=== PATIENT | female | born 1960 | race Caucasian/White ===

== ENCOUNTER 2016-09-05 15:32 | Emergency (ER) | payer MEDICARE ==
[2016-09-05 16:05] VITALS: TEMP 98.6; BMI 36.4
[2016-09-05 16:27] LABS: AUTOMATED BASOPHIL 0.1 % (0-2); AUTOMATED EOSINOPHIL 0.1 % (0-5); AUTOMATED LYMPH 38.7 % (17-44); AUTOMATED MONOCYTE 7.1 % (3-10); MPV 7.9 fL (7.4-10.4)
[2016-09-05 16:39] LABS: PARTIAL THROMB. TIME 24.7 SEC (22-35)
[2016-09-05 16:44] LABS: BLOOD UREA NITROGEN 19 MG/DL (7-17); CALC CORRECTED 9.3 MG/DL (8.4-10.2); CALCIUM 9.2 MG/DL (8.4-10.2); CALCULATED OSMOLALITY 276 MOs/Kg (270-290); CHLORIDE 109 mEq/L (98-107); GLUCOSE 121 MG/DL (70-99); SODIUM LEVEL 142 mEq/L (137-146); TOTAL PROTEIN 6.7 G/DL (6.3-8.2)
[2016-09-05 17:03] LABS: LEUKOCYTES/URINE NEG (NEGATIVE); NITRITE/URINE NEG (NEGATIVE); RBC/URINE 0-2 (0-5); URINE OCCULT BLOOD NEG (NEG/TRACE)
--- NOTE | 2016-09-05 17:26 | EDPRACDOC ---
- General Information Chief Complaint: Generalized Weakness Stated Complaint: HEADACHE DIZZY RT ARM NUMB NAUSEATED Time Seen by Provider: 09/05/16 17:17 Information Source: Patient Mode of Arrival: Car Home Medications: Home Medications Prednisone [Deltasone, Orasone] 10 mg PO DAILY #39 tablet 09/05/16 Sulfamethoxazole/Trimethoprim [Bactrim Ds Tablet] 1 tab PO BID #10 tab 09/05/16 - History of Present Illness Onset: 4 days HPI: RIGHT ARM PAIN AND NUMBNESS FOR 6 MONTHS, GRADUALLY WORSENING. HEADACHE AND NAUSEA STARTED SATURDAY. HAS HAD XRAY AND MRI OF NECK WITH CERVICAL DISC DISEASE. ED Past Medical History - Patient Medical History Neurological History: Reports: Cerebrovascular Accident Cardiac History: Reports: Hypertension Respiratory History: Reports: COPD Musculoskeletal History: Reports: Arthritis (hands, elbows, knees) Psychological History: Reports: Anxiety. Denies: Depression Systemic History: Denies: Cancer Surgical History: Denies: Hysterectomy - Social Medical History Smoking Status: Heavy tobacco smoker (5 or more cigarettes/day or daily pipe/ cigar) EDM Review of Systems - Review of Systems ROS Negative Except as Marked: Yes All systems reviewed and were negative except as marked Constitutional: No Symptoms Reported Eyes: No Symptoms Reported Throat: No Symptoms Reported Nose: No Symptoms Reported Respiratory: No Symptoms Reported Cardiovascular: No Symptoms Reported Gastrointestinal: Nausea (WHEN PAIN IS SEVERE) Genitourinary: Frequency. negative: Dysuria - Physical Exam Constitutional: Alert (Awake), No apparent distress Oriented to: Time, Person, Place Last recorded Vital Signs: Last Vital Signs Temp 98.6 F 09/05/16 15:58 Pulse 67 09/05/16 15:58 Resp 20 09/05/16 15:58 BP 172/81 09/05/16 15:58 Pulse Ox 95 09/05/16 15:58 Oxygen Pulse Oxygen Saturation 95 O2 Device Room Air Oxygen Flow Rate Fraction of Inspired Oxygen ( FIO2) - HEENT Head: Normal ( normocephalic) Eye Exam: Normal (PERRL, EOMI, Sclera white) Oropharynx: Normal (Pharynx:Moist without exudate,Gums-no swelling) Nose: No Symptoms Reported (septum midline) Neck: Tender (MIDLINE CERVICAL APPROX C4, C5) - Respiratory/Cardiovascular Respiratory: Normal - CTA (BBS clear to auscultation without adventitious sounds ) Cardiovascular: Normal (RRR without murmur, gallop or rub) - GI Auscultation: Normal (NABS) Palpation: Normal (Soft,No rebound or guarding, non distended) Tenderness: Non tender Cordoba's Sign: Negative - Musculoskeletal Back: Normal (Non-Tender) Extremities: Normal (Normal tone, Pulses 2+ No cyanosis or edema, FROM) - Integumentary Skin: Normal, Warm, Dry Lymphatics: Normal (no adenopathy) - Neurologic Memory Impaired: Normal Motor Function: Normal (Normal tone, Pulses 2+ No cyanosis or edema, FROM) Cranial Nerve: Normal (CN II-X11 intact sensation, strength 5/5) Cerebellar: Normal Mood Description: Normal Perception: Normal - Results 09/05/16 16:08 09/05/16 16:08 WBC 7.6 xk/uL (3.8-10.8) 09/05/16 16:08 RBC 4.34 xM/uL (4.20-5.40) 09/05/16 16:08 Hgb 13.6 g/dL (12.0-16.0) 09/05/16 16:08 Hct 40.0 % (36-47) 09/05/16 16:08 MCV 92 fL (81-99) 09/05/16 16:08 MCH 31.4 pg (27-32) 09/05/16 16:08 MCHC 34.1 g/dl (33-36) 09/05/16 16:08 RDW 13.1 % (11.5-14.5) 09/05/16 16:08 Plt Count 271 xk/uL (130-400) 09/05/16 16:08 MPV 7.9 fL (7.4-10.4) 09/05/16 16:08 Neut % (Auto) 54.0 % (45-76) 09/05/16 16:08 Lymph % (Auto) 38.7 % (17-44) 09/05/16 16:08 Hood % (Auto) 7.1 % (3-10) 09/05/16 16:08 Eos % (Auto) 0.1 % (0-5) 09/05/16 16:08 Baso % (Auto) 0.1 % (0-2) 09/05/16 16:08 Absolute Neuts (auto) 4.10 xk/uL (1.7-8.2) 09/05/16 16:08 Absolute Lymphs (auto) 2.89 xk/uL (0.65-4.75) 09/05/16 16:08 PT 10.4 SEC (9.2-11.2) 09/05/16 16:08 INR 1.0 09/05/16 16:08 APTT 24.7 SEC (22-35) 09/05/16 16:08 Sodium 142 mEq/L (137-146) 09/05/16 16:08 Potassium 3.6 mEq/L (3.5-5.1) 09/05/16 16:08 Chloride 109 mEq/L (98-107) H 09/05/16 16:08 Carbon Dioxide 23 mMOL/L (22-33) 09/05/16 16:08 Anion Gap 14 mEq/L (8-16) 09/05/16 16:08 BUN 19 MG/DL (7-17) H 09/05/16 16:08 Creatinine 1.00 MG/DL (0.52-1.04) 09/05/16 16:08 Estimated GFR (MDRD) 57 mL/min (>=60) L 09/05/16 16:08 Glucose 121 MG/DL (70-99) H 09/05/16 16:08 Calculated Osmolality 276 MOs/Kg (270-290) 09/05/16 16:08 Calcium 9.2 MG/DL (8.4-10.2) 09/05/16 16:08 Corrected Calcium 9.3 MG/DL (8.4-10.2) 09/05/16 16:08 Total Bilirubin 0.3 MG/DL (0.2-1.3) 09/05/16 16:08 AST 23 IU/L (14-36) 09/05/16 16:08 ALT 29 IU/L (9-52) 09/05/16 16:08 Alkaline Phosphatase 74 IU/L (38-126) 09/05/16 16:08 Troponin I < 0.01 ng/mL (<.04) 09/05/16 16:08 Egw-S-Mqirwlqxyeg Pept 300 pg/mL (0-900) 09/05/16 16:08 Total Protein 6.7 G/DL (6.3-8.2) 09/05/16 16:08 Albumin 3.9 G/DL (3.5-5.0) 09/05/16 16:08 Urine Color Yellow 09/05/16 16:08 Urine Clarity Cldy 09/05/16 16:08 Urine pH 6.0 (5.0-8.0) 09/05/16 16:08 Ur Specific [place] 1.020 (1.003-1.035) 09/05/16 16:08 Urine Protein Neg (NEG/TRACE) 09/05/16 16:08 Urine Glucose (UA) Neg (NEGATIVE) 09/05/16 16:08 Urine Ketones Neg (NEGATIVE) 09/05/16 16:08 Urine Occult Blood Neg (NEG/TRACE) 09/05/16 16:08 Urine Nitrite Neg (NEGATIVE) 09/05/16 16:08 Urine Bilirubin Neg (NEGATIVE) 09/05/16 16:08 Urine Urobilinogen <2.0 MG/DL (0-1) 09/05/16 16:08 Ur Leukocyte Esterase Neg (NEGATIVE) 09/05/16 16:08 Urine RBC 0-2 (0-5) 09/05/16 16:08 Urine WBC 5-10 (0-5) H 09/05/16 16:08 Urine WBC Clumps Present (NONE) H 09/05/16 16:08 Ur Epithelial Cells 4+ 09/05/16 16:08 Urine Bacteria 1+ (NEG/FEW) H 09/05/16 16:08 Urine Mucus Sm amt (NEG/OCC) 09/05/16 16:08 Lab Results 09/05/16 09/05/16 09/05/16 16:08 16:08 16:08 WBC 7.6 RBC 4.34 Hgb 13.6 Hct 40.0 MCV 92 MCH 31.4 MCHC 34.1 RDW 13.1 Plt Count 271 MPV 7.9 Neut % (Auto) 54.0 Lymph % (Auto) 38.7 Hood % (Auto) 7.1 Eos % (Auto) 0.1 Baso % (Auto) 0.1 Absolute Neuts (auto) 4.10 Absolute Lymphs (auto) 2.89 PT 10.4 INR 1.0 APTT 24.7 Sodium Potassium Chloride Carbon Dioxide Anion Gap BUN Creatinine Estimated GFR (MDRD) Glucose Calculated Osmolality Calcium Corrected Calcium Total Bilirubin AST ALT Alkaline Phosphatase Troponin I Gkb-E-Uskkmagsmba Pept Total Protein Albumin Urine Color Yellow Urine Clarity Cldy Urine pH 6.0 Ur Specific [place] 1.020 Urine Protein Neg Urine Glucose (UA) Neg Urine Ketones Neg Urine Occult Blood Neg Urine Nitrite Neg Urine Bilirubin Neg Urine Urobilinogen <2.0 Ur Leukocyte Esterase Neg Urine RBC 0-2 Urine WBC 5-10 H Urine WBC Clumps Present H Ur Epithelial Cells 4+ Urine Bacteria 1+ H Urine Mucus Sm amt 09/05/16 16:08 WBC RBC Hgb Hct MCV MCH MCHC RDW Plt Count MPV Neut % (Auto) Lymph % (Auto) Hood % (Auto) Eos % (Auto) Baso % (Auto) Absolute Neuts (auto) Absolute Lymphs (auto) PT INR APTT Sodium 142 Potassium 3.6 Chloride 109 H Carbon Dioxide 23 Anion Gap 14 BUN 19 H Creatinine 1.00 Estimated GFR (MDRD) 57 L Glucose 121 H Calculated Osmolality 276 Calcium 9.2 Corrected Calcium 9.3 Total Bilirubin 0.3 AST 23 ALT 29 Alkaline Phosphatase 74 Troponin I < 0.01 Pli-P-Rjqalttjjuj Pept 300 Total Protein 6.7 Albumin 3.9 Urine Color Urine Clarity Urine pH Ur Specific [place] Urine Protein Urine Glucose (UA) Urine Ketones Urine Occult Blood Urine Nitrite Urine Bilirubin Urine Urobilinogen Ur Leukocyte Esterase Urine RBC Urine WBC Urine WBC Clumps Ur Epithelial Cells Urine Bacteria Urine Mucus Decision Time to Discharge: 17:36 - Departure Yes I personally saw and evaluated the patient. Disposition: Home Condition: Stable Final Diagnosis: Cervical radiculopathy UTI (urinary tract infection) Qualifiers: Urinary tract infection type: acute cystitis Hematuria presence: without hematuria Qualified Code(s): N30.00 - Acute cystitis without hematuria Instructions: Cervical Radiculopathy (ED), Urinary Tract Infection in Women (ED ) Education/Counseling Given To: Patient, Family Member Education/Counseling Given Regarding: Diagnosis, Treatment, Follow Up Referrals: Alec Jett MD [Staff Physician] - One Week Prescriptions: Prednisone [Deltasone, Orasone] 10 mg PO DAILY #39 tablet Sulfamethoxazole/Trimethoprim [Bactrim Ds Tablet] 1 tab PO BID #10 tab
[2016-09-05] MEDS ORDERED: PREDNISONE 20 MG TAB PO ONE (17:27)
[2016-09-05 17:52] VITALS: BP 172/81; PULSE 60
== END 2016-09-05 17:58 | disposition home or self-care (01) ==
LOC: ED 15:32
DX: N30.00 Acute cystitis without hematuria (principal); M54.12 Radiculopathy, cervical region
CPT/HCPCS: 36415; 80053; 81001; 83880; 84484; 85025; 85610; 85730; 87086; 99284; A9270; J3490